=== PATIENT | female | born 1965 | race Caucasian/White ===

== ENCOUNTER 2017-04-23 13:12 | Emergency (ER) | payer BC, MEDICARE ==
[2017-04-23 13:36] LABS: BASOPHILS % 0.4 (0.0-1.5); EOSINOPHILS % 2.3 % (0.0-6.8); MEAN CORPUSCULAR HEMOGLOBIN 29.2 pg (28.0-34.0); MEAN CORPUSCULAR VOLUME 87.4 fl (80.0-100.0); MONOCYTES % 6.3 % (0.0-11.0); NEUTROPHILS # 3.9 # k/uL (1.4-7.7)
[2017-04-23 13:52] LABS: eGFR (African) > 60; eGFR (Non-African) > 60
[2017-04-23 14:28] LABS: APPEARANCE,URINE Clear (CLEAR); COLOR,URINE Yellow (YELLOW); OCCULT BLOOD,URINE Negative (NEGATIVE); UROBILINOGEN URINE 0.2 Eu (0.2-1.0)
[2017-04-23 14:36] VITALS: BP 122/56
--- NOTE | 2017-04-23 14:52 | Diagnostic Imaging Report ---
DAMIEN DOAN (MIRIAM) - [facility] [address] [facility].[address] [address] Report Submission Date: Apr 23, 2017 1:57:36 PM PROGRAM DIRECTOR SUBSTANCE ABUSE Patient Study Name: LOVE RÍOS Date: Apr 23, 2017 1:46:06 PM PROGRAM DIRECTOR SUBSTANCE ABUSE Modality Type: CR Gender: F Description: CHEST : 63 Institution: [facility] Physician: DAMIEN DOAN) - ER Examination: PA and lateral chest. History: Evaluate lung viera. Comparison exam: None provided Findings: PA lateral chest demonstrate a normal cardiac and mediastinal silhouette. Elevation of the right hemidiaphragm. No focal infiltrate. No blunting of the costophrenic margins. Osseous structures are appropriate for age. Cervical fixation hardware. Impression: No acute pulmonary process. Electronically signed on Apr 23, 2017 1:57:36 PM PROGRAM DIRECTOR SUBSTANCE ABUSE by: Carlos AGUILAR
--- NOTE | 2017-04-23 16:33 | ED Physician Documentation ---
Dizziness - HISTORIAN Historian: patient - HPI Stated Complaint: Dizziness, chest pain Chief Complaint: Dizziness Timing: cannot confirm onset Duration: intermittent episodes Severity: moderate Associated Symptoms: none Usually: walks w/o assistance Worsened By: nothing Further Comments: yes (52 year old female patient presents with intermittent episodes of dizziness lasting 5-10 minutes and resolving on their own, patient complains of fatigue and cough. States she called into work today becuase she didn't feel well.) - ROS CONST: none EYES/ENT: none GI/: abdominal pain (LLQ "a little pain") LNMP: irregualar periods NEURO/PSYCH: none CVS/RESP: chest pain, cough. denies: shortness of breath - PAST HX Past History: hypertension, other (Afib) Allergies/Adverse Reactions: Allergies Allergy/AdvReac Type Severity Reaction Status Date / Time No Known Allergies Allergy Verified 05/25/14 16:14 Home Medications: Ambulatory Orders Medication Instructions Recorded Lisinopril 40 mg PO DAILY 11/09/13 Amoxicillin/Potassium Clav 1 each PO TID #30 tablet 05/25/14 [Augmentin 500-125 Tablet] - SOCIAL HX Smoking History: cigarettes - FAMILY HX Family History: denies: none - VITAL SIGNS Vital Signs: Vital Signs Temp Pulse Resp BP Pulse Ox 98.2 F 67 18 122/56 99 04/23/17 14:35 04/23/17 14:35 04/23/17 14:35 04/23/17 14:35 04/23/17 14:35 - REVIEWED ASSESSMENTS Nursing Assessment Reviewed: Yes Vitals Reviewed: Yes Progress - Progress Progress: Lab reviewed, chest xray negative. Reviewed findings with patient. Patient requested work note for today. ED Results Lab/Radiology - Lab Results Lab Results: Lab Results 04/23/17 04/23/17 04/23/17 14:25 13:30 13:30 WBC RBC Hgb Hct MCV MCH MCHC RDW Plt Count Neut % (Auto) Lymph % (Auto) [place] % (Auto) Eos % (Auto) Baso % (Auto) Neut # (Auto) Lymph # (Auto) [place] # (Auto) Eos # (Auto) Baso # (Auto) Reactive Lymphs % Reactive Lymphs # Sodium Potassium Chloride Carbon Dioxide BUN Creatinine Estimated Creat Clear Est GFR ( Amer) Est GFR (Non-Af Amer) Glucose Calcium Total Bilirubin AST ALT Alkaline Phosphatase Troponin I < 0.03 ng/mL L ng/mL (0.03-0.06) NT-Pro-B Natriuret Pep 63.4 pg/mL pg/mL (15.0-125.0) Total Protein Albumin Urine Color Yellow (YELLOW) Urine Appearance Clear (CLEAR) Urine pH 7.0 (5.0 - 8.0) Ur Specific [place] 1.015 (1.010-1.030) Urine Protein Negative mg/dL mg/dL (NEGATIVE) Urine Ketones Negative mg/dL mg/dL (NEGATIVE) Urine Occult Blood Negative (NEGATIVE) Urine Nitrite Negative (NEGATIVE) Urine Bilirubin Negative (NEGATIVE) Urine Urobilinogen 0.2 Eu Eu (0.2-1.0) Ur Leukocyte Esterase Negative (NEGATIVE) Urine Glucose Negative mg/dL mg/dL (NEGATIVE) 04/23/17 04/23/17 13:30 13:30 WBC 7.40 K/ul K/ul (4.00-12.00) RBC 4.36 M/ul M/ul (3.90-5.20) Hgb 12.7 g/dL g/dL (12.0-16.0) Hct 38.1 % % (34.5-46.5) MCV 87.4 fl fl (80.0-100.0) MCH 29.2 pg pg (28.0-34.0) MCHC 33.4 g/dL g/dL (30.0-36.0) RDW 12.7 % % (11.3-14.3) Plt Count 322 K/mm3 K/mm3 (130-400) Neut % (Auto) 53.1 % % (39.0-79.0) Lymph % (Auto) 35.3 % % (16.0-50.0) [place] % (Auto) 6.3 % % (0.0-11.0) Eos % (Auto) 2.3 % % (0.0-6.8) Baso % (Auto) 0.4 (0.0-1.5) Neut # (Auto) 3.9 # k/uL # k/uL (1.4-7.7) Lymph # (Auto) 2.6 # k/uL # k/uL (0.6-4.0) [place] # (Auto) 0.5 # k/uL # k/uL (0.0-0.9) Eos # (Auto) 0.2 # k/uL # k/uL (0.0-0.6) Baso # (Auto) 0.0 # k/uL # k/uL (0.0-0.5) Reactive Lymphs % 2.6 % % (0.0-5.0) Reactive Lymphs # 0.2 # k/uL # k/uL (0.0-0.8) Sodium 135 mmol/L L mmol/L (136-145) Potassium 4.2 mmol/L mmol/L (3.5-5.1) Chloride 98 mmol/L mmol/L (98-107) Carbon Dioxide 30 mmol/L mmol/L (22-30) BUN 13 mg/dL mg/dL (7-17) Creatinine 0.80 mg/dL mg/dL (0.52-1.04) Estimated Creat Clear 161 Est GFR ( Amer) > 60 (60 - ) Est GFR (Non-Af Amer) > 60 (60 - ) Glucose 101 mg/dL mg/dL (74-106) Calcium 8.9 mg/dL mg/dL (8.4-10.2) Total Bilirubin 0.3 mg/dL mg/dL (0.2-1.3) AST 24 U/L U/L (15-46) ALT 29 U/L U/L (13-69) Alkaline Phosphatase 119 U/L U/L (38-126) Troponin I NT-Pro-B Natriuret Pep Total Protein 7.6 g/dL g/dL (6.3-8.2) Albumin 3.8 g/dL g/dL (3.5-5.0) Urine Color Urine Appearance Urine pH Ur Specific Bryan Urine Protein Urine Ketones Urine Occult Blood Urine Nitrite Urine Bilirubin Urine Urobilinogen Ur Leukocyte Esterase Urine Glucose - Orders Orders: ED Orders Category Date Time Status Continuous EKG monitoring Q30M Care 04/23/17 13:27 Active Continuous Pulse Oximetry Q30M Care 04/23/17 13:27 Active Orthostatics 1T Care 04/23/17 13:[address] IV Lock 1T Care 04/23/17 13:[address] IV Lock 1T Care 04/23/17 13:27 Active CHEST 2 VIEW [CHEST P.A.&LAT 2 VIEWS] [RAD] Stat Exams 04/23/17 Completed BNP [NT-proBNP] Stat Lab 04/23/17 13:30 Completed CBC/PLATELET/DIFF Stat Lab 04/23/17 13:30 Completed CMP Stat Lab 04/23/17 13:30 Completed TROPONIN I (cTnI) Stat Lab 04/23/17 13:30 Completed UA W/MICRO IF INDICATED Stat Lab 04/23/17 14:25 Completed EKG WITH COMPARISON Routine Ther 04/23/17 Completed Dizziness Physical Exam - Physical Exam General Appearance: [id number] EENT: eye inspection normal, ENT inspection normal, pharynx normal, no signs of dehydration, USMAN, no nystagmus, TM's nml Respiratory: no respiratory distress, breath sounds nml, chest non-tender CVS: reg rate & rhythm, heart sounds normal, equal pulses, no murmur, no gallop , PMI nml, no JVD, no friction rub, 24 Abdomen: soft, no organomegaly, normal bowel sounds, no abdominal bruit, no distension Skin: normal color, warm/dry, NR, INT, PAL, DR Neuro: nml orientation, nml speech, nml cognition, mood/affect nml Extremities: non-tender, normal range of motion, no evidence of injury, no edema , J, [employer] Cranial: nml as tested, no evidence of acute CVA Cerebellar: nml as tested, nml gait Sensorimotor: motor nml, sensation nml Discharge Clincal Impression: Intermittent dizziness Referrals: Derek Hernández [Primary Care Provider] - 2 Days Additional Instructions: Intermittent Dizziness Follow up with your primary care provider if your symptoms become worse or do not resolve. Condition: Stable Disposition: 01 HOME, SELF-CARE Decision to Admit: NO Decision Time: 14:25
== END 2017-04-23 14:34 | disposition home or self-care (01) ==
LOC: ED 13:12
DX: R42 Dizziness and giddiness (principal)
CPT/HCPCS: 71020; 80053; 81002; 83880; 84484; 85025; 99283; S1016